=== PATIENT | male | born 1970 | race African-American/Black ===

== ENCOUNTER 2020-05-02 11:47 | Inpatient (IN) | payer BC ==
[2020-05-02 16:22] LABS: BASO % 0.3 % (0-2.0); HEMATOCRIT 21.1 % (35.4-49); MCH 28.3 pg (25.7-33.7); MCHC 32.9 g/dl (32.0-35.9); MEAN CELL VOLUME 86.3 fl (80-96); MEAN PLT VOLUME 7.4 fl (7.5-11.1); MONO % 8.9 % (3.8-10.2); NEUT % 80.8 % (42.8-82.8); PLATELET COUNT 366 K/MM3 (134-434); RBC 2.45 M/mm3 (4.00-5.60); RDW 15.3 % (11.9-15.9); WHITE BLOOD COUNT 6.7 K/mm3 (4.0-10.0)
[2020-05-02 16:27] LABS: CHLORIDE 98 mmol/L (98-107); POTASSIUM 3.2 mmol/L (3.5-5.1); SODIUM 133 mmol/L (136-145)
[2020-05-02 16:29] LABS: ALBUMIN 2.1 g/dl (3.4-5.0); ANION GAP 7 MMOL/L (8-16); CALCIUM 9.3 mg/dL (8.5-10.1); CO2 28 mmol/L (21-32)
[2020-05-02 16:30] LABS: GLUCOSE,RANDOM 105 mg/dL (74-106)
[2020-05-02 16:32] LABS: INR 1.04 (0.83-1.09); PROTHROMBIN TIME (PATIENT) 12.8 SEC (9.7-13.0); SGPT/ALT 27 U/L (13-61)
[2020-05-02 16:33] LABS: CREATININE 2.8 mg/dL (0.55-1.3); SGOT/AST 17 U/L (15-37)
[2020-05-02 16:34] LABS: BILIRUBIN,TOTAL 0.2 mg/dL (0.2-1); TOT PROT 7.8 g/dl (6.4-8.2)
[2020-05-02 16:35] LABS: ACTIVATED PTT 32.6 SECONDS (25.2-36.5); ALK PHOS 396 U/L (45-117)
[2020-05-02 16:38] LABS: HEMOGLOBIN 6.9 GM/dL (11.7-16.9)
[2020-05-02] MEDS ORDERED: ONDANSETRON HCL 4 MG/5 ML BULK BOTTLE GT PRN (22:43)
[2020-05-02] MEDS ORDERED: PATIENT'S OWN MEDICATION (NON-FORMULARY) (Midodrine Hcl [Midodrine Hcl] 10 MG Tablet) PO SCH (22:45)
[2020-05-03] MEDS: LEVOTHYROXINE NA 100 MCG TABLET (FP) GT SCH (06:13)
[2020-05-03] MEDS: PSYLLIUM 5.85 GM PACKET GT SCH ×3 (06:22→21:40)
[2020-05-03] MEDS ORDERED: MIDODRINE HCL 5 MG TABLET PO ONE ×2 (08:00→13:00)
[2020-05-03] MEDS: ACETAMINOPHEN 650 MG/20.3 ML ORAL SOLUTION (CUPS) GT PRN (08:07)
[2020-05-03] MEDS: SEVELAMER CARBONATE 0.8 GM POWDER PACKET GT SCH ×3 (08:07→16:55)
[2020-05-03 08:33] LABS: BASO % 0.4 % (0-2.0); EOS % 2.5 % (0-4.5); HEMATOCRIT 23.9 % (35.4-49); HEMOGLOBIN 7.8 GM/dL (11.7-16.9); LYMPH % 11.8 % (8-40); MCH 28.2 pg (25.7-33.7); MCHC 32.8 g/dl (32.0-35.9); MEAN CELL VOLUME 85.9 fl (80-96); MEAN PLT VOLUME 7.4 fl (7.5-11.1); MONO % 8.7 % (3.8-10.2); NEUT % 76.6 % (42.8-82.8); PLATELET COUNT 369 K/MM3 (134-434); RBC 2.78 M/mm3 (4.00-5.60); RDW 15.3 % (11.9-15.9); WHITE BLOOD COUNT 6.2 K/mm3 (4.0-10.0)
[2020-05-03 08:56] LABS: POTASSIUM 3.2 mmol/L (3.5-5.1)
[2020-05-03 09:10] LABS: ALBUMIN 2.1 g/dl (3.4-5.0); BLOOD UREA NITROGEN 48.5 mg/dL (7-18); CALCIUM 9.5 mg/dL (8.5-10.1); MAGNESIUM 2.4 mg/dL (1.8-2.4)
[2020-05-03 09:13] LABS: CREATININE 3.2 mg/dL (0.55-1.3); PHOSPHOROUS 2.8 mg/dL (2.5-4.9)
[2020-05-03 09:14] LABS: BILIRUBIN,TOTAL 0.3 mg/dL (0.2-1); TOT PROT 7.5 g/dl (6.4-8.2)
[2020-05-03] MEDS ORDERED: PNEUMOC 13-VAL CONJ-DIP CRM/PF 0.5 ML DISP.SYRIN IM ONE (10:00)
[2020-05-03] MEDS ORDERED: FINASTERIDE 5 MG TABLET (FP) PO SCH (10:00)
[2020-05-03] MEDS ORDERED: FLU VACCINE (FLULAVAL) PF 60 MCG/0.5 ML SYRINGE 2020-2021 IM ONE (10:00)
[2020-05-03] MEDS ORDERED: CHOLESTYRAMINE/ASPARTAME 4 GM PACKET GT SCH (10:00)
[2020-05-03] MEDS ORDERED: PNEUMOCOCCAL 23 VACCINE 0.5 ML VIAL IM ONE (10:30)
[2020-05-03] MEDS ORDERED: PT OWN MED DRAWER 7, Y5N ONE ×3 (10:55→21:24)
[2020-05-03] MEDS: VITAMIN B COMP W-C 1 EA TABLET (NEPHRO-VITE) PO SCH (11:05)
[2020-05-03] MEDS: FAMOTIDINE 40 MG/5 ML ORAL SUSPENSION NGT SCH ×2 (11:05→21:40)
[2020-05-03] MEDS ORDERED: SODIUM CHLORIDE 250 ML IV PRN (13:33)
[2020-05-03] MEDS ORDERED: EPOETIN ALFA-EPBX 4,000 UNIT/ML VIAL IVPUSH ONE (13:33)
[2020-05-03] MEDS ORDERED: POLYETHYLENE GLYCOL 3350 119 GM BTL PO SCH (16:59)
[2020-05-03] MEDS: ACETAMINOPHEN 1000 MG/100 ML VIAL (NON FORMULARY) IVPB PRN (18:46)
[2020-05-03] MEDS: DEXTROSE 5%-0.45% SALINE 1,000 ML IV SCH (18:47)
[2020-05-03] MEDS: POLYETHYLENE GLYCOL 3350 119 GM BTL GT SCH (21:40)
[2020-05-04] MEDS: POLYETHYLENE GLYCOL 3350 119 GM BTL GT SCH ×3 (06:13→21:55)
[2020-05-04] MEDS: PSYLLIUM 5.85 GM PACKET GT SCH (06:14)
[2020-05-04] MEDS: ACETAMINOPHEN 1000 MG/100 ML VIAL (NON FORMULARY) IVPB PRN ×2 (06:14→14:53)
[2020-05-04] MEDS: LEVOTHYROXINE NA 100 MCG TABLET (FP) GT SCH (06:14)
[2020-05-04 09:02] LABS: BASO % 0.4 % (0-2.0); EOS % 1.7 % (0-4.5); HEMATOCRIT 29.1 % (35.4-49); HEMOGLOBIN 9.8 GM/dL (11.7-16.9); LYMPH % 7.4 % (8-40); MCHC 33.8 g/dl (32.0-35.9); MEAN CELL VOLUME 85.6 fl (80-96); MEAN PLT VOLUME 7.6 fl (7.5-11.1); MONO % 7.4 % (3.8-10.2); NEUT % 83.1 % (42.8-82.8); PLATELET COUNT 359 K/MM3 (134-434); RBC 3.39 M/mm3 (4.00-5.60); WHITE BLOOD COUNT 8.1 K/mm3 (4.0-10.0)
[2020-05-04 09:34] LABS: CALCIUM 9.9 mg/dL (8.5-10.1); MAGNESIUM 2.1 mg/dL (1.8-2.4)
[2020-05-04 09:35] LABS: BLOOD UREA NITROGEN 38.4 mg/dL (7-18)
[2020-05-04 09:37] LABS: CREATININE 2.8 mg/dL (0.55-1.3)
[2020-05-04 09:38] LABS: PHOSPHOROUS 2.4 mg/dL (2.5-4.9)
[2020-05-04 09:39] LABS: TOT PROT 7.4 g/dl (6.4-8.2)
[2020-05-04 09:40] LABS: BILIRUBIN,TOTAL 0.3 mg/dL (0.2-1)
[2020-05-04] MEDS: SEVELAMER CARBONATE 0.8 GM POWDER PACKET GT SCH ×3 (09:45→17:33)
[2020-05-04 10:03] LABS: POTASSIUM 2.8 mmol/L (3.5-5.1)
[2020-05-04] MEDS: VITAMIN B COMP W-C 1 EA TABLET (NEPHRO-VITE) PO SCH (10:37)
[2020-05-04] MEDS: FAMOTIDINE 40 MG/5 ML ORAL SUSPENSION NGT SCH ×2 (10:37→21:58)
[2020-05-04] MEDS ORDERED: POTASSIUM CHLORIDE ORAL LIQUID 20 MEQ/15 ML PEG ONE (11:17)
[2020-05-04] MEDS: ALBUTEROL SO4 HFA INHALER IH SCH ×3 (12:13→16:27)
[2020-05-04] MEDS ORDERED: DEXTROSE 50%-WATER - 25 GM/50 ML VIAL IVPUSH ONE (16:59)
[2020-05-04] MEDS ORDERED: DEXTROSE 50%-WATER 25 GM/50 ML DISP.SYRIN ONE (17:16)
[2020-05-04] MEDS: AMINO ACIDS/PROTEIN HYDROLYS 30 ML LIQUID.PKT PEG SCH (17:32)
[2020-05-04] MEDS: DEXTROSE 5%-0.45% SALINE 1,000 ML IV SCH (17:33)
[2020-05-04] MEDS: ALBUTEROL SO4 0.083% IH SOL 2.5 MG/3 ML VIAL.NEB. NEB SCH (20:30)
[2020-05-04] MEDS: ACETAMINOPHEN 650 MG/20.3 ML ORAL SOLUTION (CUPS) GT PRN (21:59)
[2020-05-04] MEDS ORDERED: POTASSIUM CHLORIDE ORAL LIQUID 20 MEQ/15 ML PO ONE (22:00)
[2020-05-05] MEDS: ACETAMINOPHEN 650 MG/20.3 ML ORAL SOLUTION (CUPS) GT PRN (04:00)
[2020-05-05] MEDS: POLYETHYLENE GLYCOL 3350 119 GM BTL GT SCH ×2 (06:02→14:13)
[2020-05-05] MEDS: LEVOTHYROXINE NA 100 MCG TABLET (FP) GT SCH (06:03)
[2020-05-05] MEDS: ALBUTEROL SO4 0.083% IH SOL 2.5 MG/3 ML VIAL.NEB. NEB SCH ×4 (08:25→20:24)
[2020-05-05 08:50] LABS: BASO % 0.4 % (0-2.0); EOS % 2.4 % (0-4.5); HEMATOCRIT 28.2 % (35.4-49); HEMOGLOBIN 9.6 GM/dL (11.7-16.9); MCH 29.5 pg (25.7-33.7); MCHC 34.2 g/dl (32.0-35.9); MEAN CELL VOLUME 86.1 fl (80-96); MEAN PLT VOLUME 7.3 fl (7.5-11.1); MONO % 8.1 % (3.8-10.2); NEUT % 80.1 % (42.8-82.8); PLATELET COUNT 387 K/MM3 (134-434); RBC 3.27 M/mm3 (4.00-5.60); RDW 14.8 % (11.9-15.9); WHITE BLOOD COUNT 7.2 K/mm3 (4.0-10.0)
[2020-05-05] MEDS: SEVELAMER CARBONATE 0.8 GM POWDER PACKET GT SCH ×2 (09:00→12:28)
[2020-05-05] MEDS: AMINO ACIDS/PROTEIN HYDROLYS 30 ML LIQUID.PKT PEG SCH ×2 (09:00→17:21)
[2020-05-05] MEDS ORDERED: ACETAMINOPHEN 1000 MG/100 ML VIAL (NON FORMULARY) IVPB PRN (09:37)
[2020-05-05] MEDS: FAMOTIDINE 40 MG/5 ML ORAL SUSPENSION NGT SCH ×2 (09:46→21:31)
[2020-05-05] MEDS: VITAMIN B COMP W-C 1 EA TABLET (NEPHRO-VITE) PO SCH (09:46)
[2020-05-05] MEDS: ENOXAPARIN NA (PORCINE) 40 MG/0.4 ML DISP.SYRIN SQ SCH (10:04)
[2020-05-05 10:33] LABS: POTASSIUM 3.4 mmol/L (3.5-5.1)
[2020-05-05 10:42] LABS: BLOOD UREA NITROGEN 46.5 mg/dL (7-18); CALCIUM 9.4 mg/dL (8.5-10.1); MAGNESIUM 2.2 mg/dL (1.8-2.4)
[2020-05-05 10:43] LABS: ALBUMIN 1.8 g/dl (3.4-5.0)
[2020-05-05 10:45] LABS: CREATININE 3.4 mg/dL (0.55-1.3)
[2020-05-05] MEDS ORDERED: POTASSIUM CHLORIDE TABS 20 MEQ TABLET.ER (FP) PO ONE (10:45)
[2020-05-05 10:46] LABS: PHOSPHOROUS 2.4 mg/dL (2.5-4.9)
[2020-05-05 10:47] LABS: BILIRUBIN,TOTAL 0.5 mg/dL (0.2-1)
[2020-05-05] MEDS ORDERED: POTASSIUM CHLORIDE ORAL LIQUID 20 MEQ/15 ML GT ONE (12:30)
[2020-05-06] MEDS: LEVOTHYROXINE NA 100 MCG TABLET (FP) GT SCH (06:03)
[2020-05-06] MEDS: HYDROCORTISONE 0.5% TOPICAL CREAM 30 GM TUBE TP PRN (06:03)
[2020-05-06] MEDS: ALBUTEROL SO4 0.083% IH SOL 2.5 MG/3 ML VIAL.NEB. NEB SCH ×4 (07:35→19:28)
[2020-05-06] MEDS ORDERED: MIDODRINE HCL 5 MG TABLET PO ONE (08:00)
[2020-05-06 09:06] LABS: BASO % 0.2 % (0-2.0); EOS % 2.1 % (0-4.5); HEMATOCRIT 26.7 % (35.4-49); MCH 28.9 pg (25.7-33.7); MCHC 33.7 g/dl (32.0-35.9); MEAN CELL VOLUME 85.6 fl (80-96); MEAN PLT VOLUME 7.3 fl (7.5-11.1); MONO % 6.1 % (3.8-10.2); NEUT % 85.6 % (42.8-82.8); PLATELET COUNT 383 K/MM3 (134-434); RBC 3.12 M/mm3 (4.00-5.60); RDW 14.9 % (11.9-15.9); WHITE BLOOD COUNT 9.9 K/mm3 (4.0-10.0)
[2020-05-06 09:27] LABS: POTASSIUM 3.4 mmol/L (3.5-5.1)
[2020-05-06 09:29] LABS: CALCIUM 9.4 mg/dL (8.5-10.1)
[2020-05-06 09:30] LABS: ALBUMIN 1.8 g/dl (3.4-5.0); BLOOD UREA NITROGEN 62.3 mg/dL (7-18); MAGNESIUM 2.3 mg/dL (1.8-2.4)
[2020-05-06 09:35] LABS: BILIRUBIN,TOTAL 0.3 mg/dL (0.2-1); TOT PROT 6.6 g/dl (6.4-8.2)
[2020-05-06] MEDS ORDERED: SODIUM CHLORIDE 250 ML IV PRN (09:40)
[2020-05-06] MEDS ORDERED: EPOETIN ALFA-EPBX 3,000 UNIT/ML VIAL IVPUSH ONE (11:00)
[2020-05-06] MEDS ORDERED: PT OWN MED DRAWER 7, Y5N ONE ×2 (11:07→21:57)
[2020-05-06] MEDS: ENOXAPARIN NA (PORCINE) 40 MG/0.4 ML DISP.SYRIN SQ SCH (11:11)
[2020-05-06] MEDS: AMINO ACIDS/PROTEIN HYDROLYS 30 ML LIQUID.PKT PEG SCH ×2 (11:11→16:56)
[2020-05-06] MEDS: POLYETHYLENE GLYCOL 3350 119 GM BTL GT SCH ×3 (11:12→22:40)
[2020-05-06] MEDS: FAMOTIDINE 40 MG/5 ML ORAL SUSPENSION NGT SCH ×2 (11:12→22:40)
[2020-05-06] MEDS: VITAMIN B COMP W-C 1 EA TABLET (NEPHRO-VITE) PO SCH (11:12)
[2020-05-06] MEDS: COLLAGENASE CLOSTRIDIUM HIST. 30 GRAMS TUBE TP SCH (16:58)
[2020-05-06] MEDS: ACETAMINOPHEN 650 MG/20.3 ML ORAL SOLUTION (CUPS) GT PRN (22:39)
[2020-05-07] MEDS: LEVOTHYROXINE NA 100 MCG TABLET (FP) GT SCH (06:25)
[2020-05-07 08:48] LABS: BASO % 0.2 % (0-2.0); HEMATOCRIT 27.6 % (35.4-49); HEMOGLOBIN 9.3 GM/dL (11.7-16.9); LYMPH % 2.9 % (8-40); MCH 29.2 pg (25.7-33.7); MCHC 33.6 g/dl (32.0-35.9); MEAN CELL VOLUME 86.8 fl (80-96); MEAN PLT VOLUME 7.3 fl (7.5-11.1); MONO % 6.7 % (3.8-10.2); NEUT % 89.2 % (42.8-82.8); PLATELET COUNT 347 K/MM3 (134-434); RBC 3.18 M/mm3 (4.00-5.60); RDW 15.2 % (11.9-15.9); WHITE BLOOD COUNT 12.1 K/mm3 (4.0-10.0)
[2020-05-07 08:55] LABS: POTASSIUM 3.2 mmol/L (3.5-5.1)
[2020-05-07 08:59] LABS: BLOOD UREA NITROGEN 48.1 mg/dL (7-18); CALCIUM 9.2 mg/dL (8.5-10.1)
[2020-05-07 09:01] LABS: ALBUMIN 1.9 g/dl (3.4-5.0); MAGNESIUM 2.2 mg/dL (1.8-2.4)
[2020-05-07] MEDS: ALBUTEROL SO4 0.083% IH SOL 2.5 MG/3 ML VIAL.NEB. NEB SCH ×4 (09:02→20:55)
[2020-05-07 09:03] LABS: CREATININE 3.2 mg/dL (0.55-1.3)
[2020-05-07 09:05] LABS: BILIRUBIN,TOTAL 0.3 mg/dL (0.2-1); TOT PROT 7.4 g/dl (6.4-8.2)
[2020-05-07] MEDS: ACETAMINOPHEN 650 MG/20.3 ML ORAL SOLUTION (CUPS) GT PRN ×3 (09:12→22:26)
[2020-05-07] MEDS ORDERED: KCL 10 MEQ IVPB 10 MEQ/100 ML INFUS.BAG IVPB SCH (09:30)
[2020-05-07] MEDS: ENOXAPARIN NA (PORCINE) 40 MG/0.4 ML DISP.SYRIN SQ SCH (09:56)
[2020-05-07] MEDS: AMINO ACIDS/PROTEIN HYDROLYS 30 ML LIQUID.PKT PEG SCH ×2 (09:57→17:52)
[2020-05-07] MEDS: KCL 10 MEQ IVPB 10 MEQ/100 ML INFUS.BAG IVPB SCH ×2 (09:58→14:18)
[2020-05-07] MEDS ORDERED: VANCOMYCIN 1 GM in D5W (PRE-DOCKED) 1,000 MG/250 ML IVPB ONE (09:59)
[2020-05-07] MEDS: FAMOTIDINE 40 MG/5 ML ORAL SUSPENSION NGT SCH ×2 (10:00→22:28)
[2020-05-07] MEDS: VITAMIN B COMP W-C 1 EA TABLET (NEPHRO-VITE) PO SCH (10:00)
[2020-05-07] MEDS ORDERED: MEROPENEM 500 MG in DEXTROSE 5%-WATER 100 ML IVPB SCH (10:00)
[2020-05-07] MEDS: COLLAGENASE CLOSTRIDIUM HIST. 30 GRAMS TUBE TP SCH (11:00)
[2020-05-07] MEDS: POLYETHYLENE GLYCOL 3350 119 GM BTL GT SCH ×2 (11:07→22:27)
[2020-05-07] MEDS ORDERED: DEXTROSE 5%-WATER 100 ML IVPB ONE (11:11)
[2020-05-07] MEDS ORDERED: MEROPENEM 500 MG VIAL (RESTRICTED TO ID) IVPB ONE (11:11)
[2020-05-07] MEDS ORDERED: INSULIN (NOVOLOG) ASPART 100 UNITS/ML 10ML VIAL ONE ×2 (11:36→22:13)
[2020-05-07] MEDS: HYDROCORTISONE 0.5% TOPICAL CREAM 30 GM TUBE TP PRN (11:57)
[2020-05-07] MEDS: INSULIN SLIDING SCALE (NOVOLOG) 1 VIAL SQ SCH ×2 (17:52→22:28)
[2020-05-07] MEDS ORDERED: PIPERACILLIN/TAZOBACTAM 2.25 GM VIAL IVPB ONE (17:54)
[2020-05-07] MEDS ORDERED: DEXTROSE 5%-WATER - 50 ML IVPB ONE (17:54)
[2020-05-07] MEDS: PIPERACILLIN/TAZOB 2.25 GM 2.25 GM in DEXTROSE 5%-WATER - 50 ML IVPB SCH (17:55)
[2020-05-07] MEDS ORDERED: PT OWN MED DRAWER 7, Y5N ONE (22:13)
[2020-05-08] MEDS ORDERED: PIPERACILLIN/TAZOBACTAM 2.25 GM VIAL IVPB ONE ×3 (01:28→17:48)
[2020-05-08] MEDS ORDERED: DEXTROSE 5%-WATER - 50 ML IVPB ONE ×3 (01:28→17:48)
[2020-05-08] MEDS: PIPERACILLIN/TAZOB 2.25 GM 2.25 GM in DEXTROSE 5%-WATER - 50 ML IVPB SCH ×3 (02:04→18:16)
[2020-05-08] MEDS: LEVOTHYROXINE NA 100 MCG TABLET (FP) GT SCH (06:41)
[2020-05-08] MEDS: INSULIN SLIDING SCALE (NOVOLOG) 1 VIAL SQ SCH ×4 (06:42→22:37)
[2020-05-08] MEDS: ALBUTEROL SO4 0.083% IH SOL 2.5 MG/3 ML VIAL.NEB. NEB SCH ×4 (07:55→20:30)
[2020-05-08] MEDS ORDERED: MIDODRINE HCL 5 MG TABLET PO ONE (08:00)
[2020-05-08 09:25] LABS: BASO % 0.3 % (0-2.0); EOS % 1.3 % (0-4.5); HEMATOCRIT 25.4 % (35.4-49); HEMOGLOBIN 8.2 GM/dL (11.7-16.9); MCH 27.5 pg (25.7-33.7); MCHC 32.2 g/dl (32.0-35.9); MEAN CELL VOLUME 85.6 fl (80-96); MEAN PLT VOLUME 7.5 fl (7.5-11.1); NEUT % 82.4 % (42.8-82.8); PLATELET COUNT 355 K/MM3 (134-434); RBC 2.97 M/mm3 (4.00-5.60); RDW 15.6 % (11.9-15.9); WHITE BLOOD COUNT 11.1 K/mm3 (4.0-10.0)
[2020-05-08] MEDS ORDERED: SODIUM CHLORIDE 250 ML IV PRN (09:25)
[2020-05-08] MEDS: ALBUMIN HUMAN 25% 12.5 GM/50 ML VIAL IVPB SCH ×4 (09:30→11:00)
[2020-05-08] MEDS: ENOXAPARIN NA (PORCINE) 40 MG/0.4 ML DISP.SYRIN SQ SCH (09:38)
[2020-05-08] MEDS: AMINO ACIDS/PROTEIN HYDROLYS 30 ML LIQUID.PKT PEG SCH ×2 (09:38→18:17)
[2020-05-08] MEDS: FAMOTIDINE 40 MG/5 ML ORAL SUSPENSION NGT SCH ×2 (09:39→22:36)
[2020-05-08 09:43] LABS: POTASSIUM 3.1 mmol/L (3.5-5.1)
[2020-05-08] MEDS: VITAMIN B COMP W-C 1 EA TABLET (NEPHRO-VITE) PO SCH (09:49)
[2020-05-08] MEDS: POLYETHYLENE GLYCOL 3350 119 GM BTL GT SCH ×2 (09:49→22:37)
[2020-05-08 09:54] LABS: CALCIUM 9.5 mg/dL (8.5-10.1)
[2020-05-08 09:55] LABS: ALBUMIN 1.9 g/dl (3.4-5.0); BLOOD UREA NITROGEN 64.8 mg/dL (7-18)
[2020-05-08 09:57] LABS: MAGNESIUM 2.2 mg/dL (1.8-2.4)
[2020-05-08 09:58] LABS: BILIRUBIN,TOTAL 0.9 mg/dL (0.2-1)
[2020-05-08 09:59] LABS: TOT PROT 7.4 g/dl (6.4-8.2)
[2020-05-08] MEDS ORDERED: EPOETIN ALFA-EPBX 3,000 UNIT/ML VIAL SQ ONE (10:00)
[2020-05-08 14:41] VITALS: BMI 23.3
[2020-05-08] MEDS: COLLAGENASE CLOSTRIDIUM HIST. 30 GRAMS TUBE TP SCH (16:00)
[2020-05-09] MEDS ORDERED: DEXTROSE 5%-WATER - 50 ML IVPB ONE ×3 (01:17→17:00)
[2020-05-09] MEDS ORDERED: PIPERACILLIN/TAZOBACTAM 2.25 GM VIAL IVPB ONE ×3 (01:17→17:00)
[2020-05-09] MEDS: PIPERACILLIN/TAZOB 2.25 GM 2.25 GM in DEXTROSE 5%-WATER - 50 ML IVPB SCH ×3 (02:14→17:15)
[2020-05-09] MEDS: INSULIN SLIDING SCALE (NOVOLOG) 1 VIAL SQ SCH ×4 (06:31→22:44)
[2020-05-09] MEDS: LEVOTHYROXINE NA 100 MCG TABLET (FP) GT SCH (06:31)
[2020-05-09] MEDS: ALBUTEROL SO4 0.083% IH SOL 2.5 MG/3 ML VIAL.NEB. NEB SCH ×4 (07:35→20:10)
[2020-05-09 09:31] LABS: BASO % 0.2 % (0-2.0); EOS % 1.1 % (0-4.5); HEMATOCRIT 25.2 % (35.4-49); HEMOGLOBIN 8.2 GM/dL (11.7-16.9); LYMPH % 4.6 % (8-40); MCH 28.2 pg (25.7-33.7); MCHC 32.6 g/dl (32.0-35.9); MEAN CELL VOLUME 86.6 fl (80-96); MEAN PLT VOLUME 7.5 fl (7.5-11.1); NEUT % 85.1 % (42.8-82.8); PLATELET COUNT 388 K/MM3 (134-434); RBC 2.91 M/mm3 (4.00-5.60); RDW 15.8 % (11.9-15.9); WHITE BLOOD COUNT 14.7 K/mm3 (4.0-10.0)
[2020-05-09] MEDS: AMINO ACIDS/PROTEIN HYDROLYS 30 ML LIQUID.PKT PEG SCH ×2 (09:41→17:15)
[2020-05-09] MEDS: ENOXAPARIN NA (PORCINE) 40 MG/0.4 ML DISP.SYRIN SQ SCH (09:41)
[2020-05-09] MEDS: VITAMIN B COMP W-C 1 EA TABLET (NEPHRO-VITE) PO SCH (09:41)
[2020-05-09] MEDS: POLYETHYLENE GLYCOL 3350 119 GM BTL GT SCH ×2 (09:45→21:20)
[2020-05-09] MEDS: FAMOTIDINE 40 MG/5 ML ORAL SUSPENSION NGT SCH ×2 (09:45→22:43)
[2020-05-09 09:47] LABS: CHLORIDE 99 mmol/L (98-107); SODIUM 138 mmol/L (136-145)
[2020-05-09 09:53] LABS: CALCIUM 9.4 mg/dL (8.5-10.1); CO2 29 mmol/L (21-32)
[2020-05-09 09:55] LABS: ALBUMIN 1.8 g/dl (3.4-5.0); BLOOD UREA NITROGEN 43.4 mg/dL (7-18); GLUCOSE,RANDOM 202 mg/dL (74-106)
[2020-05-09 09:56] LABS: SGOT/AST 33 U/L (15-37)
[2020-05-09 09:57] LABS: BILIRUBIN,TOTAL 0.7 mg/dL (0.2-1); MAGNESIUM 2.1 mg/dL (1.8-2.4)
[2020-05-09 09:58] LABS: SGPT/ALT 40 U/L (13-61)
[2020-05-09 09:59] LABS: CREATININE 2.9 mg/dL (0.55-1.3)
[2020-05-09 10:00] LABS: TOT PROT 7.3 g/dl (6.4-8.2)
[2020-05-09] MEDS ORDERED: ERGOCALCIFEROL 8,000 UNITS/ML DROPSBTL PO SCH (10:00)
[2020-05-09 10:02] LABS: ALK PHOS > 1000 U/L (45-117); ANION GAP 10 MMOL/L (8-16)
[2020-05-09] MEDS: ACETAMINOPHEN 650 MG/20.3 ML ORAL SOLUTION (CUPS) GT PRN (10:38)
[2020-05-09 10:47] LABS: POTASSIUM 2.8 mmol/L (3.5-5.1)
[2020-05-09] MEDS: KCL 10 MEQ IVPB 10 MEQ/100 ML INFUS.BAG IVPB SCH ×3 (11:42→14:36)
[2020-05-09] MEDS: COLLAGENASE CLOSTRIDIUM HIST. 30 GRAMS TUBE TP SCH (11:42)
[2020-05-09 20:54] LABS: POTASSIUM 3.1 mmol/L (3.5-5.1)
[2020-05-09 20:57] LABS: CALCIUM 9.4 mg/dL (8.5-10.1)
[2020-05-09 20:58] LABS: BLOOD UREA NITROGEN 51.8 mg/dL (7-18)
[2020-05-09 21:01] LABS: CREATININE 3.3 mg/dL (0.55-1.3)
[2020-05-09] MEDS ORDERED: POTASSIUM CHLORIDE ORAL LIQUID 20 MEQ/15 ML GT SCH (22:00)
[2020-05-09] MEDS ORDERED: POTASSIUM CHLORIDE ORAL LIQUID 20 MEQ/15 ML PO SCH (22:00)
[2020-05-09] MEDS: VANCOMYCIN 250 MG/5 ML ORAL SOLUTION GT SCH (23:02)
[2020-05-10] MEDS ORDERED: PIPERACILLIN/TAZOBACTAM 2.25 GM VIAL IVPB ONE ×2 (01:12→10:36)
[2020-05-10] MEDS ORDERED: DEXTROSE 5%-WATER - 50 ML IVPB ONE ×2 (01:12→10:36)
[2020-05-10] MEDS: PIPERACILLIN/TAZOB 2.25 GM 2.25 GM in DEXTROSE 5%-WATER - 50 ML IVPB SCH ×2 (01:13→10:51)
[2020-05-10] MEDS: INSULIN SLIDING SCALE (NOVOLOG) 1 VIAL SQ SCH ×3 (06:23→17:57)
[2020-05-10] MEDS: VANCOMYCIN 250 MG/5 ML ORAL SOLUTION GT SCH ×2 (06:24→13:54)
[2020-05-10] MEDS: LEVOTHYROXINE NA 100 MCG TABLET (FP) GT SCH (06:24)
[2020-05-10] MEDS: ALBUTEROL SO4 0.083% IH SOL 2.5 MG/3 ML VIAL.NEB. NEB SCH ×3 (07:30→15:20)
[2020-05-10 09:42] LABS: BASO % 0.3 % (0-2.0); HEMATOCRIT 25.6 % (35.4-49); LYMPH % 6.7 % (8-40); MCH 26.8 pg (25.7-33.7); MCHC 31.1 g/dl (32.0-35.9); MEAN CELL VOLUME 86.1 fl (80-96); MEAN PLT VOLUME 7.3 fl (7.5-11.1); MONO % 8.9 % (3.8-10.2); NEUT % 82.1 % (42.8-82.8); PLATELET COUNT 465 K/MM3 (134-434); RBC 2.97 M/mm3 (4.00-5.60); WHITE BLOOD COUNT 12.6 K/mm3 (4.0-10.0)
[2020-05-10 10:06] LABS: POTASSIUM 3.2 mmol/L (3.5-5.1)
[2020-05-10 10:17] LABS: ALBUMIN 1.7 g/dl (3.4-5.0); BLOOD UREA NITROGEN 54.5 mg/dL (7-18); MAGNESIUM 2.1 mg/dL (1.8-2.4)
[2020-05-10 10:18] LABS: CALCIUM 9.7 mg/dL (8.5-10.1)
[2020-05-10 10:20] LABS: CREATININE 3.6 mg/dL (0.55-1.3); PHOSPHOROUS 1.9 mg/dL (2.5-4.9)
[2020-05-10 10:21] LABS: BILIRUBIN,TOTAL 0.3 mg/dL (0.2-1); TOT PROT 7.6 g/dl (6.4-8.2)
[2020-05-10] MEDS ORDERED: PT OWN MED DRAWER 7, Y5N ONE (10:36)
[2020-05-10] MEDS: POLYETHYLENE GLYCOL 3350 119 GM BTL GT SCH (10:51)
[2020-05-10] MEDS: ENOXAPARIN NA (PORCINE) 40 MG/0.4 ML DISP.SYRIN SQ SCH (10:51)
[2020-05-10] MEDS: AMINO ACIDS/PROTEIN HYDROLYS 30 ML LIQUID.PKT PEG SCH (10:51)
[2020-05-10] MEDS: FAMOTIDINE 40 MG/5 ML ORAL SUSPENSION NGT SCH (10:51)
[2020-05-10] MEDS: VITAMIN B COMP W-C 1 EA TABLET (NEPHRO-VITE) PO SCH (10:51)
[2020-05-10] MEDS: COLLAGENASE CLOSTRIDIUM HIST. 30 GRAMS TUBE TP SCH (10:51)
[2020-05-10] MEDS ORDERED: SODIUM CHLORIDE 250 ML IV PRN (11:43)
[2020-05-10] MEDS ORDERED: EPOETIN ALFA-EPBX 3,000 UNIT/ML VIAL IVPUSH ONE (12:00)
[2020-05-10] MEDS ORDERED: PNEUMOCOCCAL 23 VACCINE 0.5 ML VIAL IM ONE (13:00)
[2020-05-10 18:08] VITALS: BP 132/71; PULSE 83; TEMP 98.6
== END 2020-05-10 18:28 | DRG 207 ==
LOC: JER 11:47 → JERBED 20:21 → OBSVTOIN 22:47 → J5S 05-03 02:41
PROVIDERS: ADMIT Internal Medicine; ATTEND Nurse Practitioner Family
PROC: 5A1955Z Respiratory Ventilation, Greater than 96 Consecutive Hours (ICD-10-PCS; principal; 2020-05-02)
PROC: 3E0G76Z Introduction of Nutritional Substance into Upper GI, Via Natural or Artificial Opening (ICD-10-PCS; 2020-05-02)
PROC: 30233N1 Transfusion of Nonautologous Red Blood Cells into Peripheral Vein, Percutaneous Approach (ICD-10-PCS; 2020-05-02)
PROC: 5A1D70Z Performance of Urinary Filtration, Intermittent, Less than 6 Hours Per Day (ICD-10-PCS; 2020-05-03)
DX: J96.20 Acute and chronic respiratory failure, unspecified whether with hypoxia or hypercapnia (principal); N18.6 End stage renal disease; A41.9 Sepsis, unspecified organism; A04.72 Enterocolitis due to Clostridium difficile, not specified as recurrent; R55 Syncope and collapse; I44.0 Atrioventricular block, first degree; D64.9 Anemia, unspecified; J44.9 Chronic obstructive pulmonary disease, unspecified; E03.9 Hypothyroidism, unspecified; Z99.2 Dependence on renal dialysis; Z93.0 Tracheostomy status; K56.41 Fecal impaction; R74.8 Abnormal levels of other serum enzymes; Z93.1 Gastrostomy status; E87.6 Hypokalemia; L89.152 Pressure ulcer of sacral region, stage 2; L89.322 Pressure ulcer of left buttock, stage 2; L89.312 Pressure ulcer of right buttock, stage 2; R16.0 Hepatomegaly, not elsewhere classified; E16.2 Hypoglycemia, unspecified; L29.9 Pruritus, unspecified; E83.52 Hypercalcemia; Z86.19 Personal history of other infectious and parasitic diseases
CPT/HCPCS: 36415; 36430; 71045-TC-FY; 74019-TC-FY; 74176-TC; 76700-TC; 80048; 80053; 82272; 82550; 82962; 82977; 83036; 83605; 83735; 84100; 84484; 85025; 85610; 85730; 86769; 86803; 86850; 86900; 86901; 86922; 87040; 87070; 87186; 87205; 87324; 87340; 87449; 90732; 93005; 93010; 93306-TC; 93970-TC; 94002; 94640; 97162-GP; 99285-25; C9803; G0008; G0009; G0378; J0131; P9058; Q2036; Q5106; U0003